=== PATIENT | female | born 1965 | race Caucasian/White ===

== ENCOUNTER 2020-02-14 23:34 | Emergency (ER) | payer OTHER ==
[~2020-02-14] VITALS: Ht 157.5 cm; Wt 72.6 kg
[2020-02-14 23:39] VITALS: BP 134/89
--- NOTE | 2020-02-15 00:06 | NUR ---
54 Y/O FEMALE C/O LOWER ABD PAIN X2 DAYS WITH NAUSEA, DENIES VOMITING/CHILLS/SOB. ALSO C/O LOWER BACK PAIN RADIATING DOWN TO BUTTOCKS AND BILAT LOWER EXT. DENIES ANY RECENT TRAUMA OR INJURY. PT ABLE TO AMBULATE TO RESTROOM TO PROVIDE URINE SAMPLE. ABD SOFT/NON TENDER/NON DISTENDED. BOWEL SOUNDS NORMOACTIVE IN ALL QUADRANTS. DENIES ANY UTI SYMPTOMS. NO PMH NKA
[2020-02-15] MEDS ORDERED: KETOROLAC 60 MG/2 ML VIAL IM ONE (00:10)
[2020-02-15 00:28] VITALS: BP 134/89
--- NOTE | 2020-02-15 00:28 | NUR ---
Patient discharged with v/s stable. Written and verbal after care instructions given and explained. Patient alert, oriented and verbalized understanding of instructions. Ambulatory with steady gait. All questions addressed prior to discharge. ID band removed. Patient advised to follow up with PMD. Rx of CIPRO, ZOFRAN, NORCO given. Patient educated on indication of medication including possible reaction and side effects. Opportunity to ask questions provided and answered.
== END 2020-02-15 00:28 | disposition home or self-care (01) ==
LOC: MED 23:34
DX: N39.0 Urinary tract infection, site not specified (principal); R51 Headache; Z90.49 Acquired absence of other specified parts of digestive tract
CPT/HCPCS: 81002; 81025; 96372; 99283; J1885